=== PATIENT | female | born 1935 | race Caucasian/White ===

== ENCOUNTER 2016-11-06 20:04 | Inpatient (IN) | payer OTHER ==
--- NOTE | 2016-11-06 20:37 | EDPHY ---
H & P Stated Complaint: SOB COUGH DIFFICULTY BREATHING 5 DAY Source: Patient, Family - Personal History Current Tetanus/Diphtheria Vaccine: Yes Current Tetanus Diphtheria and Acellular Pertussis (TDAP): Yes - Medical/Surgical History Hx Asthma: No Hx Chronic Respiratory Disease: No Hx Diabetes: Yes Hx Cardiac Disease: Yes Hx Renal Disease: No Hx Cirrhosis: No Hx Alcoholism: No Hx HIV/AIDS: No Hx Splenectomy or Spleen Trauma: No Other PMH: D.M, STENTS 2005, HYPOTHYROID, DIVORTICULITIS, HTN - Social History Smoking Status: Never smoked Time Seen by Provider: 11/06/16 20:25 HPI/ROS: CHIEF COMPLAINT: Cough and fever shortness of breath HISTORY OF PRESENT ILLNESS: This is a 80-year-old female presenting to the emergency department complaining of cough and cold symptoms for a week. Over the past 1-2 days symptoms have worsened shortness of breath, productive cough, fever, with generalized weakness. Patient states she was placed on azithromycin and Tessalon [place] without resolve. Denies any chest pain chest pressure REVIEW OF SYSTEMS: Constitutional: fever, chills. Decrease in p.o. intake Eyes: No discharge. ENT: No sore throat. Cardiovascular: No chest pain, no palpitations. Respiratory: Productive cough, shortness of breath. Gastrointestinal: No abdominal pain, no vomiting. Genitourinary: No hematuria. Musculoskeletal: No back pain. Skin: No rashes. Neurological: No headache. (Tiffany Sanz) - Physical Exam Exam: General Appearance: Alert, no distress. Eyes: Pupils equal and round no pallor or injection. ENT, Mouth: Mucous membranes dry Respiratory: There are no retractions, lungs are coarse bilaterally Cardiovascular: Tachycardic. Gastrointestinal: Abdomen is soft and nontender, no masses, bowel sounds normal. Neurological: No focal deficits Skin: Warm and dry, no rashes. Musculoskeletal: Neck is supple nontender. Extremities: symmetrical, full range of motion. Psychiatric: Patient is oriented X 3, there is no agitation. (Tiffany Sanz) Constitutional: Initial Vital Signs Temperature (C) 36.8 C 11/06/16 20:06 Heart Rate 123 H 11/06/16 20:06 Respiratory Rate 24 H 11/06/16 20:06 Blood Pressure 159/106 H 11/06/16 20:06 O2 Sat (%) 93 11/06/16 20:06 O2 Delivery Mode Room Air Allergies/Adverse Reactions: erythromycin base [Erythromycin Base] Allergy (Verified 11/06/16 20:12) hydrochlorothiazide Allergy (Verified 11/06/16 20:12) Iodinated Contrast Media - Oral and Allergy (Verified 11/06/16 20:12) spironolactone Allergy (Verified 11/06/16 20:12) valacyclovir HCl [From Valtrex] Allergy (Verified 11/06/16 20:12) Home Medications: Medication Instructions Recorded Aspirin [Aspir 81] 81 mg PO DAILY 12/31/11 AZITHROMYCIN [Z-PACK] 250 mg PO DAILY 11/06/16 Allopurinol [Allopurinol 300 MG 300 mg PO HS 11/06/16 (RX)] Aspirin [Aspirin 81mg (*)] 81 mg PO BID 11/06/16 Atorvastatin Calcium [Lipitor 20 20 mg PO DAILY 11/06/16 mg (*)] Benzonatate [Tessalon Pearles (RX)] 100 mg PO TID PRN 11/06/16 Cetirizine [ZyrTEC 10 mg (*)] 10 mg PO BID 11/06/16 Cholecalciferol Vit D3 [Vitamin D3 2,000 units PO BID 11/06/16 (*)] Clopidogrel Bisulfate [Plavix (*)] 75 mg PO DAILY 11/06/16 Codeine Phosphate/Guaifenesin 5 ml PO Q4-6PRN PRN 11/06/16 [Guaifenesin-Codeine Syrup] Cyanocobalamin [Vitamin B12 (*)] 1,000 mcg PO DAILY 11/06/16 Famotidine [Pepcid 20 MG (*)] 20 mg PO BID 11/06/16 Insulin Glargine [Lantus 100 30 units SC HS 11/06/16 UNITS/ML (*)] Ipratropium 0.06% Nasal [Atrovent 2 sprays EACHNARE HS PRN 11/06/16 0.06% Nasal (RX)] LORazepam [Ativan (*)] 0.5 mg PO HS 11/06/16 Levothyroxine [Synthroid 125 mcg 125 mcg PO DAILY06 11/06/16 (*)] Metoprolol Succinate Xr [Toprol Xl 50 mg PO HS 05/06/17 50 mg (*)] [place]-3 Fatty Acids [Fish Oil 1000 2,000 mg PO BID 11/06/16 mg (*)] PARoxetine HCL [Paxil 10mg (*)] 10 mg PO HS 11/06/16 Zolpidem Tartrate [Ambien 5MG (*)] 5 mg PO HS 11/06/16 amLODIPine BESYLATE [Norvasc 5 mg 5 mg PO DAILY@18 11/06/16 (*)] metFORMIN HCL [Glucophage 1000 mg] 1,000 mg PO BIDMEAL 11/06/16 Medical Decision Making - Diagnostics Imaging Results: Imaging Impressions Chest X-Ray 11/06/16 20:36 Impression: 1. Bronchitis. 2. No focal pneumonia. 3. No pneumothorax. 4. Atherosclerotic aorta. ED Course/Re-evaluation: The patient was evaluated and managed by the BUSINESS OFFICE COORDINATOR. My cosignature indicates that I reviewed the chart and I agree with the findings and plan of care as documented. I am the secondary supervising physician. (Lora Rao) Discussed the plan of care with patient: IV fluids, CBC, CMP, chest x-ray, lactate admitted 2130: Discussed patient admit with family 2200: Spoke with Dr. Laird patient admitted (Tiffany Sanz) Differential Diagnosis: Differential diagnosis considered but not limited to pleural effusion, pneumothorax, and (Tiffany Sanz) - Data Points Laboratory Results: Laboratory Results 11/06/16 20:44 11/06/16 20:44 11/06/16 11/06/16 11/06/16 20:44 20:44 20:44 WBC 4.82 10^3/uL 10^3/uL (3.80-9.50) RBC 4.58 10^6/uL 10^6/uL (4.18-5.33) Hgb 14.5 g/dL g/dL (12.6-16.3) Hct 40.3 % % (38.0-47.0) MCV 88.0 fL fL (81.5-99.8) MCH 31.7 pg pg (27.9-34.1) MCHC 36.0 g/dL g/dL (32.4-36.7) RDW 12.9 % % (11.5-15.2) Plt Count 198 10^3/uL 10^3/uL (150-400) MPV 10.8 fL fL (8.7-11.7) Neut % (Auto) 57.1 % % (39.3-74.2) Lymph % (Auto) 30.3 % % (15.0-45.0) [place] % (Auto) 11.2 % % (4.5-13.0) Eos % (Auto) 0.0 % L % (0.6-7.6) Baso % (Auto) 1.0 % % (0.3-1.7) Nucleat RBC Rel Count 0.0 % % (0.0-0.2) Absolute Neuts (auto) 2.75 10^3/uL 10^3/uL (1.70-6.50) Absolute Lymphs (auto) 1.46 10^3/uL 10^3/uL (1.00-3.00) Absolute Monos (auto) 0.54 10^3/uL 10^3/uL (0.30-0.80) Absolute Eos (auto) 0.00 10^3/uL L 10^3/uL (0.03-0.40) Absolute Basos (auto) 0.05 10^3/uL 10^3/uL (0.02-0.10) Absolute Nucleated RBC 0.00 10^3/uL 10^3/uL (0-0.01) Immature Gran % 0.4 % % (0.0-1.1) Immature Gran # 0.02 10^3/uL 10^3/uL (0.00-0.10) PT 11.9 SEC L SEC (12.0-15.0) INR 0.89 (0.83-1.16) APTT 24.6 SEC SEC (23.0-38.0) VBG Lactic Acid Sodium 129 mEq/L L mEq/L (134-144) Potassium 4.2 mEq/L mEq/L (3.5-5.2) Chloride 97 mEq/L mEq/L (97-110) Carbon Dioxide 20 mEq/l L mEq/l (22-31) Anion Gap 12 mEq/L mEq/L (8-16) BUN 21 mg/dL mg/dL (7-23) Creatinine 1.3 mg/dL H mg/dL (0.6-1.0) Estimated GFR 40 Glucose 244 mg/dL H mg/dL (70-100) Calcium 9.6 mg/dL mg/dL (8.5-10.4) Total Bilirubin 0.8 mg/dL mg/dL (0.1-1.4) 11/06/16 20:44 WBC RBC Hgb Hct MCV MCH MCHC RDW Plt Count MPV Neut % (Auto) Lymph % (Auto) [place] % (Auto) Eos % (Auto) Baso % (Auto) Nucleat RBC Rel Count Absolute Neuts (auto) Absolute Lymphs (auto) Absolute Monos (auto) Absolute Eos (auto) Absolute Basos (auto) Absolute Nucleated RBC Immature Gran % Immature Gran # PT INR APTT VBG Lactic Acid 2.9 mmol/L H mmol/L (0.7-2.1) Sodium Potassium Chloride Carbon Dioxide Anion Gap BUN Creatinine Estimated GFR Glucose Calcium Total Bilirubin Departure - Departure Disposition: [facility] Inpatient Acute Condition: Good
[2016-11-06] MEDS ORDERED: NS 1,900 ML IV ONE (21:03)
[2016-11-06 21:08] LABS: % IMMATURE GRANULYOCYTES 0.4 % (0.0-1.1); ABSOLUTE IMMATURE GRANULOCYTES 0.02 10^3/uL (0.00-0.10); ADD DIFF? NO; ADD MORPH? NO; ADD SCAN? NO; ATYPICAL LYMPHOCYTE FLAG 0 (0-99); FRAGMENT RBC FLAG 0 (0-99); HEMATOCRIT 40.3 % (38.0-47.0); HEMOGLOBIN 14.5 g/dL (12.6-16.3); LEFT SHIFT FLG 0 (0-99); LIPEMIA HEMOLYSIS FLAG 90 (0-99); MEAN CELL HEMOGLOBIN 31.7 pg (27.9-34.1); MEAN PLATELET VOLUME 10.8 fL (8.7-11.7); PLATELET CLUMPS FLAG 10 (0-99); PLATELET COUNT 198 10^3/uL (150-400); RED BLOOD CELL COUNT 4.58 10^6/uL (4.18-5.33); RED CELL DISTRIBUTION WIDTH 12.9 % (11.5-15.2)
[2016-11-06 21:14] LABS: INR 0.89 (0.83-1.16); PROTIME(PATIENT) 11.9 SEC (12.0-15.0)
[2016-11-06 21:16] LABS: ANION GAP 12 mEq/L (8-16); BILIRUBIN,TOTAL 0.8 mg/dL (0.1-1.4); CALCIUM 9.6 mg/dL (8.5-10.4); CARBON DIOXIDE 20 mEq/l (22-31); CHLORIDE 97 mEq/L (97-110); CREATININE 1.3 mg/dL (0.6-1.0); GLOMERULAR FILTRATION RATE 40; GLUCOSE 244 mg/dL (70-100); POTASSIUM 4.2 mEq/L (3.5-5.2); SODIUM 129 mEq/L (134-144)
[2016-11-06 21:19] LABS: APTT 24.6 SEC (23.0-38.0)
[2016-11-06 21:58] LABS: LACGHOST ORDER
[2016-11-06] MEDS ORDERED: ONDANSETRON DISINTEGRATING 4 MG TAB PO PRN (23:01)
[2016-11-06] MEDS ORDERED: ONDANSETRON 4 MG/2 ML VIAL IVP PRN (23:01)
[2016-11-06] MEDS ORDERED: oxyCODONE IR 5 MG TAB PO PRN (23:01)
[2016-11-06] MEDS ORDERED: ACETAMINOPHEN 500 MG TAB PO PRN (23:01)
[2016-11-06] MEDS ORDERED: ALBUTEROL 3 ML DEYVIAL IH PRN (23:01)
[2016-11-06] MEDS ORDERED: levOFLOXACIN 750 MG/DEXTROSE/150 ML BAG IV ONE (23:03)
[2016-11-06] MEDS ORDERED: guaiFENesin/CODEINE PHOS 10 ML UDCUP PO PRN (23:04)
[2016-11-06] MEDS ORDERED: BENZONATATE 100 MG CAP PO PRN (23:04)
[2016-11-06] MEDS ORDERED: D50W 25 GM/50 ML SYR IVP PRN (23:06)
[2016-11-06] MEDS ORDERED: HYDROCODONE/APAP 5/325 TAB ONE (23:44)
[2016-11-06] MEDS ORDERED: HYDROCODONE/APAP 5/325 TAB PO PRN (23:47)
[2016-11-06] MEDS ORDERED: HYDROCODONE/APAP 5/325 TAB PO ONE (23:50)
[2016-11-07] MEDS ORDERED: IPRATROPIUM 0.06% NASAL SPRAY EACHNARE PRN (01:05)
--- NOTE | 2016-11-07 01:09 | PDGENHP ---
History and Physical - Chief Complaint cough, shortness of breath - History of Present Illness Patient is a 80-year-old female with a history of CAD S/P PCI, DM 2, hypothyroidism, allergic rhinitis who presents to the ED with complaint shortness of breath and cough. Patient states symptoms started about 5 days ago with mostly upper respiratory symptoms, nasal congestion and sneezing. The following day she had 1 episode of vomiting and diarrhea (nonbilious/nonbloody) . These symptoms improved, but her cough continued to worsen, became associated with subjective fever and chills. She went to her PMD's office two days ago and was told if symptoms don't improve within the next 24 hours, to start taking azithromycin. She initiated this on 11/05, but her symptoms continued, so she came to the ED for further evaluation. She denies any obvious sick contacts, did travel within the [place] about 3 weeks ago, but had been well until 5 days ago. On arrival to the ED, patient was afebrile, but tachycardic and tachypneic, saturating in the low90s on room air. Labs revealed normal CBC, elevated lactic acid (3) and mild hyponatremia. CXR did not show obvious infiltrate, however, given her clinical symptoms, patient was initiated on treatment for pneumonia. History Information - Allergies/Home Medication List Allergies/Adverse Reactions: erythromycin base [Erythromycin Base] Allergy (Verified 11/06/16 20:12) hydrochlorothiazide Allergy (Verified 11/06/16 20:12) Iodinated Contrast Media - Oral and Allergy (Verified 11/06/16 20:12) spironolactone Allergy (Verified 11/06/16 20:12) valacyclovir HCl [From Valtrex] Allergy (Verified 11/06/16 20:12) Home Medications: Aspirin [Aspir 81] 81 mg PO DAILY 12/31/11 [Last Taken 12/31/11] AZITHROMYCIN [Z-PACK] 250 mg PO DAILY 11/06/16 [Last Taken 11/06/16 500 MG] Allopurinol [Allopurinol 300 MG (RX)] 300 mg PO HS 11/06/16 [Last Taken 11/05/16 ] Aspirin [Aspirin 81mg (*)] 81 mg PO BID 11/06/16 [Last Taken 11/06/16] Atorvastatin Calcium [Lipitor 20 mg (*)] 20 mg PO DAILY 11/06/16 [Last Taken 12/18] Benzonatate [Tessalon Pearles (RX)] 100 mg PO TID PRN 11/06/16 [Last Taken 11/06] Cetirizine [ZyrTEC 10 mg (*)] 10 mg PO BID 11/06/16 [Last Taken 11/06/16] Cholecalciferol Vit D3 [Vitamin D3 (*)] 2,000 units PO BID 11/06/16 [Last Taken 11/06/16] Clopidogrel Bisulfate [Plavix (*)] 75 mg PO DAILY 11/06/16 [Last Taken 11/06/16] Codeine Phosphate/Guaifenesin [Guaifenesin-Codeine Syrup] 5 ml PO Q4-6PRN PRN [Last Taken 11/06/16] Cyanocobalamin [Vitamin B12 (*)] 1,000 mcg PO DAILY 11/06/16 [Last Taken ] Famotidine [Pepcid 20 MG (*)] 20 mg PO BID 11/06/16 [Last Taken 11/06/16] Insulin Glargine [Lantus 100 UNITS/ML (*)] 30 units SC HS 11/06/16 [Last Taken 11/05/16] Ipratropium 0.06% Nasal [Atrovent 0.06% Nasal (RX)] 2 sprays EACHNARE HS PRN 12/18 [Last Taken 11/05/16] LORazepam [Ativan (*)] 0.5 mg PO HS 11/06/16 [Last Taken 11/05/16] Levothyroxine [Synthroid 125 mcg (*)] 125 mcg PO DAILY06 11/06/16 [Last Taken ] Metoprolol Succinate Xr [Toprol Xl 50 mg (*)] 50 mg PO HS 11/06/16 [Last Taken 11/05/16] [place]-3 Fatty Acids [Fish Oil 1000 mg (*)] 2,000 mg PO BID 11/06/16 [Last Taken 11/06/16] PARoxetine HCL [Paxil 10mg (*)] 10 mg PO HS 11/06/16 [Last Taken 11/05/16] Zolpidem Tartrate [Ambien 5MG (*)] 5 mg PO HS 11/06/16 [Last Taken 11/05/16] amLODIPine BESYLATE [Norvasc 5 mg (*)] 5 mg PO DAILY@18 11/06/16 [Last Taken 12/18] metFORMIN HCL [Glucophage 1000 mg] 1,000 mg PO BIDMEAL 11/06/16 [Last Taken 12/18] I have personally reviewed and updated: family history, medical history, social history, surgical history - Past Medical History Additional medical history: CAD s/p PCI x 2. DM2, on insulin. Hypothyroidism. allergic rhinitis. Hypertension. h/o diverticulitis w colon resection - Surgical History Additional surgical history: bilateral cataract repair. cholecystectomy. hysterectomy, with bilateral salpingo-oophorectomy. partial colon resection - Social History Smoking Status: Never smoked Alcohol Use: None Drug Use: None Additional social history: Lives with her son, is independent in ADLs Review of Systems ROS: 10pt was reviewed & negative except for what was stated in HPI & below Physical Exam Temp Pulse Resp BP Pulse Ox 36.9 C 73 19 139/87 H 91 L 11/07/16 00:34 11/07/16 00:34 11/07/16 00:34 11/07/16 00:34 11/07/16 00:34 O2 (L/minute) 2 Constitutional: no apparent distress, appears nourished, not in pain Eyes: PERRL, anicteric sclera, EOMI Ears, Nose, Mouth, Throat: hearing normal, ears appear normal, no oral mucosal ulcers, dry mucous membranes Cardiovascular: regular rate and rhythym, no murmur, rub, or gallop, pulses symmetric bilaterally, No JVD, No edema Peripheral Pulses: 2+: dorsalis-pedis (R), dorsalis-pedis (L) Respiratory: no respiratory distress, no rales or rhonchi, clear to auscultation Gastrointestinal: normoactive bowel sounds, soft, non-tender abdomen, no palpable masses, No guarding, No rebound Genitourinary: no bladder fullness, no bladder tenderness Skin: warm, normal color, no rashes or abrasions, no fluctuance, no induration, No mottled Musculoskeletal: full muscle strength, no muscle tenderness, normal joint ROM, no joint effusions Neurologic: AAOx3, sensation intact bilaterally, CN II-XII Intact, No weakness, No numbness, No facial droop Psychiatric: interacting appropriately, not anxious, not encephalopathic, thought process linear Lab Data & Imaging Review 11/06/16 20:44 11/06/16 20:44 WBC 4.82 10^3/uL (3.80-9.50) 11/06/16 20:44 RBC 4.58 10^6/uL (4.18-5.33) 11/06/16 20:44 Hgb 14.5 g/dL (12.6-16.3) 11/06/16 20:44 Hct 40.3 % (38.0-47.0) 11/06/16 20:44 MCV 88.0 fL (81.5-99.8) 11/06/16 20:44 MCH 31.7 pg (27.9-34.1) 11/06/16 20:44 MCHC 36.0 g/dL (32.4-36.7) 11/06/16 20:44 RDW 12.9 % (11.5-15.2) 11/06/16 20:44 Plt Count 198 10^3/uL (150-400) 11/06/16 20:44 MPV 10.8 fL (8.7-11.7) 11/06/16 20:44 Neut % (Auto) 57.1 % (39.3-74.2) 11/06/16 20:44 Lymph % (Auto) 30.3 % (15.0-45.0) 11/06/16 20:44 [place] % (Auto) 11.2 % (4.5-13.0) 11/06/16 20:44 Eos % (Auto) 0.0 % (0.6-7.6) L 11/06/16 20:44 Baso % (Auto) 1.0 % (0.3-1.7) 11/06/16 20:44 Nucleat RBC Rel Count 0.0 % (0.0-0.2) 11/06/16 20:44 Absolute Neuts (auto) 2.75 10^3/uL (1.70-6.50) 11/06/16 20:44 Absolute Lymphs (auto) 1.46 10^3/uL (1.00-3.00) 11/06/16 20:44 Absolute Monos (auto) 0.54 10^3/uL (0.30-0.80) 11/06/16 20:44 Absolute Eos (auto) 0.00 10^3/uL (0.03-0.40) L 11/06/16 20:44 Absolute Basos (auto) 0.05 10^3/uL (0.02-0.10) 11/06/16 20:44 Absolute Nucleated RBC 0.00 10^3/uL (0-0.01) 11/06/16 20:44 Immature Gran % 0.4 % (0.0-1.1) 11/06/16 20:44 Immature Gran # 0.02 10^3/uL (0.00-0.10) 11/06/16 20:44 PT 11.9 SEC (12.0-15.0) L 11/06/16 20:44 INR 0.89 (0.83-1.16) 11/06/16 20:44 APTT 24.6 SEC (23.0-38.0) 11/06/16 20:44 VBG Lactic Acid 2.2 mmol/L (0.7-2.1) H 11/06/16 23:06 Sodium 129 mEq/L (134-144) L 11/06/16 20:44 Potassium 4.2 mEq/L (3.5-5.2) 11/06/16 20:44 Chloride 97 mEq/L (97-110) 11/06/16 20:44 Carbon Dioxide 20 mEq/l (22-31) L 11/06/16 20:44 Anion Gap 12 mEq/L (8-16) 11/06/16 20:44 BUN 21 mg/dL (7-23) 11/06/16 20:44 Creatinine 1.3 mg/dL (0.6-1.0) H 11/06/16 20:44 Estimated GFR 40 11/06/16 20:44 Glucose 244 mg/dL (70-100) H 11/06/16 20:44 POC Glucose 158 mg/dL (70-100) H 11/07/16 00:52 Calcium 9.6 mg/dL (8.5-10.4) 11/06/16 20:44 Total Bilirubin 0.8 mg/dL (0.1-1.4) 11/06/16 20:44 Influenza A & B (PCR) NEGATIVE FOR FLU (NEGATIVE) 11/06/16 23:15 Visualized and Interpreted Chest x-ray results: Yes Chest X-Ray results: other (possible early lower lobe infiltrate) Assessment & Plan Assessment: Patient is a 72-year-old female with a history of CAD, dm 2, hypothyroidism who presents to the ED with complaint of cough and shortness of breath. ED workup appears consistent with community-acquired pneumonia. Plan: # acute pneumonia On patient's arrival in the ED, she was tachycardic and tachypneic, and given her symptoms, presentation appears consistent with acute pneumonia. Lactic acid was also elevated on presentation consistent with sepsis. She has been cultured, initiated on appropriate IV fluid bolus and antibiotic therapy. - cont ceftriaxone/azithromycin - cont NS @ 75 cc/hr - f/u blood culture - check legionella, strept ag and sputum culture # elevated creatinine, hyponatremia Likely related to hypovolemia in setting of acute illness. She has received 2L IV fluid resuscitation, will continue to trend BMP. WIll also check UA to rule out urinary source of infection. # CAD Patient denies any cardiac symptoms, denies chest pain or palpitations. Will check baseline EKG and resume home med regimen. # DM2 Blood glucose stable, will monitor FS TIDAC, cover with sliding scale insulin and resume home lantus. # Hypothyroidism Check TSH, resume home synthroid. # dispo: admit to inpatient service for likely > 2 [place] stay # gen: cardiac/diabetic diet DVT ppx: lovenox Full code
[2016-11-07] MEDS: INSULIN GLARGINE 100 UNITS/ML SYRINGE SC SCH ×2 (01:29→21:11)
[2016-11-07] MEDS: LEVOTHYROXINE 125 MCG TAB PO SCH (06:24)
[2016-11-07 07:07] LABS: % IMMATURE GRANULYOCYTES 0.3 % (0.0-1.1); ABSOLUTE IMMATURE GRANULOCYTES 0.01 10^3/uL (0.00-0.10); ADD DIFF? NO; ADD MORPH? NO; ADD SCAN? NO; ATYPICAL LYMPHOCYTE FLAG 50 (0-99); FRAGMENT RBC FLAG 0 (0-99); HEMATOCRIT 34.8 % (38.0-47.0); HEMOGLOBIN 12.4 g/dL (12.6-16.3); LEFT SHIFT FLG 0 (0-99); LIPEMIA HEMOLYSIS FLAG 90 (0-99); MEAN CELL HEMOGLOBIN 31.4 pg (27.9-34.1); MEAN CELL HEMOGLOBIN CONCENTR. 35.6 g/dL (32.4-36.7); MEAN CELL VOLUME 88.1 fL (81.5-99.8); MEAN PLATELET VOLUME 10.7 fL (8.7-11.7); PLATELET CLUMPS FLAG 20 (0-99); PLATELET COUNT 173 10^3/uL (150-400); RED BLOOD CELL COUNT 3.95 10^6/uL (4.18-5.33); RED CELL DISTRIBUTION WIDTH 12.8 % (11.5-15.2)
[2016-11-07 07:17] LABS: APTT 24.9 SEC (23.0-38.0); PROTIME(PATIENT) 13.1 SEC (12.0-15.0)
[2016-11-07 07:33] LABS: ANION GAP 8 mEq/L (8-16); CALCIUM 8.7 mg/dL (8.5-10.4); CARBON DIOXIDE 20 mEq/l (22-31); CHLORIDE 104 mEq/L (97-110); CREATININE 1.1 mg/dL (0.6-1.0); GLOMERULAR FILTRATION RATE 48; GLUCOSE 178 mg/dL (70-100); MAGNESIUM 1.1 mg/dL (1.6-2.3); POTASSIUM 4.7 mEq/L (3.5-5.2); SODIUM 132 mEq/L (134-144)
[2016-11-07] MEDS: ASPIRIN 81 MG CHEWABLE TAB PO SCH ×2 (08:13→21:03)
[2016-11-07] MEDS: CLOPIDOGREL BISULFATE 75 MG TAB PO SCH (08:13)
[2016-11-07] MEDS: OMEGA-3 FATTY ACIDS 1,000 MG CAP PO SCH ×2 (08:13→21:03)
[2016-11-07] MEDS: CHOLECALCIFEROL VIT D3 1,000 UNITS TAB PO SCH ×2 (08:13→21:02)
[2016-11-07] MEDS: CYANO/VITAMIN B12 1000 MCG TAB PO SCH (08:13)
[2016-11-07] MEDS: CETIRIZINE 10 MG TAB PO SCH ×2 (08:13→21:03)
[2016-11-07] MEDS: FAMOTIDINE 20 MG TAB PO SCH ×2 (08:13→21:03)
[2016-11-07] MEDS: INSULIN LISPRO 100 UNIT/ML SC SCH ×3 (08:14→17:50)
[2016-11-07] MEDS: ATORVASTATIN CALCIUM 20 MG TAB PO SCH (08:15)
[2016-11-07] MEDS ORDERED: AZITHROMYCIN IV 500 MG in D5W 250 ML IV SCH (09:00)
--- NOTE | 2016-11-07 12:33 | HOSPPROG ---
Hospitalist Progress Note Assessment/Plan: Patient is a 72-year-old female with a history of CAD, dm 2, hypothyroidism who presents to the ED with complaint of cough and shortness of breath. ED workup appears consistent with community-acquired pneumonia vs bronchitis. Plan: # acute pneumonia vs bronchitis - no obvious infiltrate on CXR, suspect viral etiology though will complete atbx course - cont ceftriaxone/azithromycin - cont NS @ 75 cc/hr - f/u culture data - send respiratory viral culture - schedule nebs to see if this helps with bronchospasm # diarrhea - present on arrival, send GI pathogen panel # metabolic acidosis - secondary to lactic acidosis. lactate trended up this afternoon, but clinically she appears well. -cont IVF's, recheck this evening # allergic rhinitis - zyrtec/flonase # JUANI - Cr improving with IVF's, 1.3 --> 1.1 # CAD - stable, CP free. Cont home regimen. # DM2 - adequate control, cont home regimen # Hypothyroidism - cont synthroid # dispo: cont inpt # gen: cardiac/diabetic diet DVT ppx: lovenox Full code Subjective: Pt feels better today. Cough is improved. No CP or SOB at rest. No fevers. Reports diarrhea, loose, multiple times a day, no hematochezia or melena. Decreased appetite. Objective: Vital Signs Temp Pulse Resp BP Pulse Ox 36.8 C 64 18 153/77 H 93 11/07/16 08:47 11/07/16 08:47 11/07/16 08:47 11/07/16 08:47 11/07/16 08:47 Laboratory Results 11/07/16 06:45 11/07/16 06:45 11/06/16 11/07/16 11/08/16 05:59 05:59 05:59 Intake Total 2575 375 Output Total 150 Balance 2425 375 PT 13.1 SEC (12.0-15.0) 11/07/16 06:45 INR 1.00 (0.83-1.16) 11/07/16 06:45 - Physical Exam Constitutional: no apparent distress Eyes: PERRL Ears, Nose, Mouth, Throat: moist mucous membranes Cardiovascular: regular rate and rhythym Respiratory: no respiratory distress, clear to auscultation Gastrointestinal: normoactive bowel sounds, soft, non-tender abdomen Skin: warm Musculoskeletal: full muscle strength Neurologic: AAOx3 Psychiatric: interacting appropriately ICD10 Worksheet Patient Problems: Problems Problem Status Onset Benign essential hypertension Active CAD - Coronary arteriosclerosis Active Diabetes mellitus type 2 Active Essential tremor Active Hypercholesterolemia Active Syncope Active
[2016-11-07] MEDS: ALBUTEROL 3 ML DEYVIAL IH SCH ×2 (16:47→20:07)
[2016-11-07 16:53] VITALS: RESP 16
[2016-11-07] MEDS: ENOXAPARIN 40 MG/0.4 ML SYR SC SCH (17:28)
[2016-11-07] MEDS ORDERED: amLODIPine BESYLATE 5 MG TAB PO SCH (18:00)
[2016-11-07] MEDS: FLUTICASONE NASAL 120 SPRAYS/16 GM MDI EACHNARE SCH (18:26)
[2016-11-07] MEDS: NS 1,000 ML IV SCH (18:27)
[2016-11-07] MEDS ORDERED: PARoxetine HCL 10 MG TAB PO SCH (21:00)
[2016-11-07] MEDS ORDERED: METOPROLOL SUCCINATE XR 50 MG TAB PO SCH (21:00)
[2016-11-07] MEDS ORDERED: ALLOPURINOL 300 MG TAB PO SCH (21:00)
[2016-11-08 04:18] LABS: ANION GAP 11 mEq/L (8-16); CALCIUM 9.7 mg/dL (8.5-10.4); CARBON DIOXIDE 21 mEq/l (22-31); CHLORIDE 106 mEq/L (97-110); CREATININE 1.1 mg/dL (0.6-1.0); GLOMERULAR FILTRATION RATE 48; GLUCOSE 154 mg/dL (70-100); POTASSIUM 4.1 mEq/L (3.5-5.2); SODIUM 138 mEq/L (134-144)
[2016-11-08] MEDS: ALBUTEROL 3 ML DEYVIAL IH SCH ×2 (04:25→11:26)
[2016-11-08] MEDS: VANCOMYCIN 125 MG/2.5 ML UDL PO SCH ×2 (06:05→11:13)
[2016-11-08] MEDS: LEVOTHYROXINE 125 MCG TAB PO SCH (06:05)
[2016-11-08] MEDS: NS 1,000 ML IV SCH (06:05)
[2016-11-08 08:10] VITALS: BP 122/78; PULSE 80; TEMP 98.2; O2SAT 96
[2016-11-08] MEDS: ASPIRIN 81 MG CHEWABLE TAB PO SCH (09:05)
[2016-11-08] MEDS: ENOXAPARIN 40 MG/0.4 ML SYR SC SCH (09:05)
[2016-11-08] MEDS: FAMOTIDINE 20 MG TAB PO SCH (09:05)
[2016-11-08] MEDS: ATORVASTATIN CALCIUM 20 MG TAB PO SCH (09:05)
[2016-11-08] MEDS: OMEGA-3 FATTY ACIDS 1,000 MG CAP PO SCH (09:05)
[2016-11-08] MEDS: CLOPIDOGREL BISULFATE 75 MG TAB PO SCH (09:05)
[2016-11-08] MEDS: CYANO/VITAMIN B12 1000 MCG TAB PO SCH (09:05)
[2016-11-08] MEDS: CETIRIZINE 10 MG TAB PO SCH (09:05)
[2016-11-08] MEDS: CHOLECALCIFEROL VIT D3 1,000 UNITS TAB PO SCH (09:05)
[2016-11-08] MEDS: INSULIN LISPRO 100 UNIT/ML SC SCH ×2 (09:06→11:26)
[2016-11-08] MEDS: FLUTICASONE NASAL 120 SPRAYS/16 GM MDI EACHNARE SCH (09:06)
[2016-11-08] MEDS ORDERED: PNEUMOC 13-VAL CONJ-DIP CRM/PF 0.5 ML SYR IM ONE (10:48)
--- NOTE | 2016-11-08 12:01 | PDIAF ---
- Diagnosis Diagnosis: C diff, viral bronchitis Code Status: Full Code - Medication Management Discharge Medications: Medications to Continue on Transfer Allopurinol [Allopurinol 300 MG (RX)] 300 mg PO HS 11/06/16 [Last Taken 11/05/16 ] Aspirin [Aspirin 81mg (*)] 81 mg PO BID 11/06/16 [Last Taken 11/06/16] Atorvastatin Calcium [Lipitor 20 mg (*)] 20 mg PO DAILY 11/06/16 [Last Taken 12/18] Benzonatate [Tessalon Pearles] 100 mg PO TID PRN 11/06/16 [Last Taken 11/06/16] Cetirizine [ZyrTEC 10 mg (*)] 10 mg PO BID 11/06/16 [Last Taken 11/06/16] Cholecalciferol Vit D3 [Vitamin D3 (*)] 2,000 units PO BID 11/06/16 [Last Taken 11/06/16] Clopidogrel Bisulfate [Plavix (*)] 75 mg PO DAILY 11/06/16 [Last Taken 11/06/16] Codeine Phosphate/Guaifenesin [Guaifenesin-Codeine Syrup] 5 ml PO Q4-6PRN PRN [Last Taken 11/06/16] Cyanocobalamin [Vitamin B12 (*)] 1,000 mcg PO DAILY 11/06/16 [Last Taken ] Famotidine [Pepcid 20 MG (*)] 20 mg PO BID 11/06/16 [Last Taken 11/06/16] Insulin Glargine [Lantus 100 UNITS/ML (*)] 30 units SC HS 11/06/16 [Last Taken 11/05/16] Ipratropium 0.06% Nasal [Atrovent 0.06% Nasal] 2 sprays EACHNARE HS PRN [Last Taken 11/05/16] LORazepam [Ativan (*)] 0.5 mg PO HS 11/06/16 [Last Taken 11/05/16] Levothyroxine [Synthroid 125 mcg (*)] 125 mcg PO DAILY06 11/06/16 [Last Taken ] Metoprolol Succinate Xr [Toprol Xl 50 mg (*)] 50 mg PO HS 11/06/16 [Last Taken 11/05/16] [place]-3 Fatty Acids [Fish Oil 1000 mg (*)] 2,000 mg PO BID 11/06/16 [Last Taken 11/06/16] PARoxetine HCL [Paxil 10mg (*)] 10 mg PO HS 11/06/16 [Last Taken 11/05/16] Zolpidem Tartrate [Ambien 5MG (*)] 5 mg PO HS 11/06/16 [Last Taken 11/05/16] amLODIPine BESYLATE [Norvasc 5 mg (*)] 5 mg PO DAILY@18 11/06/16 [Last Taken 12/18] metFORMIN HCL [Glucophage 1000 mg] 1,000 mg PO BIDMEAL 11/06/16 [Last Taken 12/18] Albuterol [Proventil] 17 gm IH Q4H PRN #1 aerosol 11/08/16 [Last Taken Unknown] Vancomycin [Vancocin Oral Liquid] 125 mg PO QID #52 udl 11/08/16 [Last Taken Unknown] Discharge Medications: Refer to the Discharge Home Medication list for PRN reason. PICC Care - Routine: N/A - Orders Services needed: Home Care, Registered Nurse Home Care Face to Face: I certify that this patient was under my care and that I had the required [id number] encounter meeting the encounter requirements on the discharge day. My findings support the fact that the patient is homebound as defined in CMS Chapter 7 Medicare Benefits Manual 30.1.1, The condition of the patient is such that there exists a normal inability to leave home and consequently, leaving home would require a considerable and taxing effort. Diet Recommendation: no restrictions on diet - Follow Up Care Current Providers and Referrals: Yoel Mckenna PA [Primary Care Provider] - As per Instructions
--- NOTE | 2016-11-08 19:02 | GDS ---
[f rep st] DISCHARGE SUMMARY DISCHARGE DIAGNOSES: 1. Mild hypoxemia, secondary to acute viral bronchitis, resolved. 2. Viral bronchitis, secondary to Coronavirus per respiratory viral panel. 3. Clostridium difficile diarrhea. 4. Acute kidney injury, resolved, after intravenous fluids. 5. Diabetes mellitus. 6. Hypothyroidism. 7. Coronary artery disease, status post PCI, stable. CONSULTANTS: None. IMAGING: Chest x-ray, November 06, showed peribronchial thickening suggestive of bronchitis. No obviou s infiltrate, effusion or pneumothorax. HISTORY: For details please see the history and physical dated November 07, 2016. In brief, the patient is a 80-year-old female, with a history of coronary artery disease, diabetes, and hypothyroidism, pr esented to the emergency department with shortness of breath and cough. Upon arrival, she was found to be tachycardic and tachypneic, with oxygen saturations in the low 90s, dipping into the high 80s on room air. She was admitted to the hospital for further management. HOSPITAL COURSE: The patient was admitted to the progressive care unit. There was initially some s uspicion for pneumonia, and she had an elevated lactate, therefore blood cultures were drawn. She w as started on IV antibiotics. Her lactate normalized with IV fluid resuscitation. I suspect that w as due to volume depletion, in the setting of acute illness. A viral respiratory culture was sent, and revealed Coronavirus. There was no evidence of pneumonia on her chest x-ray. Furthermore, she had complained of several days of diarrhea, and a GI pathogen panel was positive for C. difficile. At this point, ceftriaxone and azithromycin were discontinued, and oral vancomycin was started for t reatment of her C. difficile. She received supportive care for viral bronchitis including nebulizer s, IV fluid and cough suppressants. Her condition significantly improved on the day of discharge. She is saturating 96% on room air. She had mild elevation of her creatinine on arrival, and this al so improved with IV fluids. Blood cultures remain negative at discharge, though final report is sti ll pending. DISPOSITION: Patient is discharged home in stable condition. FOLLOWUP: Patient is to follow up with Dr. Yoel Mckenna, her primary care provider. DISCHARGE MEDICATIONS: Please see [facility] for complete updated outpatient medication list. She wi ll continue all medications as previously prescribed. New medications on discharge include: 1. Vancomycin 125 mg p.o. four times daily, #52, no refills, to complete a 14-day course of treatme nt for C. difficile. 2. Albuterol inhaler 1-2 puffs q.4 hours p.r.n., #1, no refills. Discontinued medications include azithromycin. /[id number]/MODL
== END 2016-11-08 12:58 | disposition home health service (06) | DRG 202 ==
LOC: F2W 11-07 00:24
PROVIDERS: ADMIT Internal Medicine; ATTEND Internal Medicine
DX: J20.8 Acute bronchitis due to other specified organisms (principal); R09.02 Hypoxemia; A04.7 Enterocolitis due to Clostridium difficile; N17.9 Acute kidney failure, unspecified; E11.9 Type 2 diabetes mellitus without complications; E03.9 Hypothyroidism, unspecified; I25.10 Atherosclerotic heart disease of native coronary artery without angina pectoris; Z95.5 Presence of coronary angioplasty implant and graft; Z23 Encounter for immunization
CPT/HCPCS: 87449-90; 96374; 97161-GP; 97165-GO; G0009; G8978-GP-CI; G8979-GP-CI; G8980-GP-CI; G8987-GO-CI; G8988-GO-CI; G8989-GO-CI; J0456; J0696; J1650; J1815; J1956; J2405

== ENCOUNTER 2017-11-25 12:15 | Observation (INO) | payer OTHER ==
[2017-11-25] MEDS ORDERED: ACETAMINOPHEN 325 MG TAB PO PRN (13:15)
[2017-11-25] MEDS ORDERED: ONDANSETRON DISINTEGRATING 4 MG TAB PO PRN (13:15)
[2017-11-25] MEDS ORDERED: ONDANSETRON 4 MG/2 ML VIAL IVP PRN (13:15)
--- NOTE | 2017-11-25 14:14 | GHP ---
[f rep st] HISTORY AND PHYSICAL DATE OF ADMISSION: 11/25/2017 DIAGNOSIS: New onset atrial fibrillation, and diarrhea. HISTORY OF PRESENT ILLNESS: This is an 82-year-old female who presented to the office today complaining of diarrhea which started Tuesday with a low-grade fever. She was seen last month in the office and treated for diverticulitis with Flagyl and Cipro. She reports that she had multiple loose bowel movements on Tuesday, and has had 2 thus far this morning. She has had multiple bowel movements every day throughout this week, with a low-grade fever. In addition, today she is feeling dizzy, weak, with increased fatigue and abdominal cramping. She has a history of C difficile in the past and is concerned that this could be recurrence of C difficile. She reports that she has been trying to drink extra fluids and has been using some electrolyte powder to supplement, given that she has had multiple episodes of diarrhea over the past few days, but does feel like she is probably dehydrated. She has had a decreased appetite and has not been eating much over the past few days. She denies any chest pain, but does endorse palpitations, lightheadedness, and dizziness. She denies any productive cough or congestion, though she does have chronic allergies, which are flaring up right now. PAST MEDICAL HISTORY: Includes type 2 diabetes, hypothyroidism, anxiety, essential hypertension, macular degeneration. She is status post NH in 2005, with 2 stent placements. ALLERGIES: Include erythromycin, gadolinium contrast, hydrochlorothiazide, spironolactone, Valtrex and Bactrim. FAMILY MEDICAL HISTORY: Father at 41 from throat cancer. Maternal aunt had dementia. A maternal aunt had diabetes. Mother at 61 from an NH. SOCIAL HISTORY: She is a former smoker, quit greater than 10 years ago. REVIEW OF SYSTEMS: GENERAL: She denies headache. Complains of fevers, chills over the past few days. Also complains of chronic allergies. ENT: Denies sinus pressure, pain, sore throat, swollen glands. RESPIRATORY: Denies productive cough, wheezing, shortness of breath. CARDIOVASCULAR: Complaining of palpitations, dizziness, lightheadedness. Denies chest pain or pressure. GI : Complaining of diarrhea with multiple watery bowel movements since Tuesday. Denies nausea, vomiting. Does also complain of abdominal cramping. GENITOURINARY: Denies urinary burning or frequency. SKIN: Denies itching, rash. NEURO: Denies numbness, tingling, loss of strength or sensation. PSYCH : Denies acute problematic mood change. EXAMINATION: GENERAL: Alert and oriented, not in acute distress. HEAD: Normocephalic, atraumatic. Eyes, pupils equal, round, reactive to light. EOMI. SKIN: Warm and dry. HEART: Irregularly irregular heart rhythm, with a slightly tachycardic rate in the 120s. No murmurs, rubs, or gallops. LUNGS: Clear to auscultation bilaterally. ABDOMEN: Soft, nontender, nondistended. EXTREMITIES: No peripheral edema. NEURO: Gait normal. Motor strength normal. PSYCH: Mood and affect full range, cooperative with exam. Good judgment and insight. ASSESSMENT/PLAN: 1. Diarrhea. The patient was recently treated in the past month for diverticulitis with Flagyl and ciprofloxacin. Will rule out Clostridium difficile as a cause for the diarrhea, checking C-reactive and sedimentation rate, as well as white count. 2. Dehydration. Multiple episodes of watery diarrhea over the past few days, likely causing dehydration. Will rehydrate with IV fluids, checking electrolytes. 3. New onset atrial fibrillation, likely due to dehydration with diarrhea. We will continue to monitor as we rehydrate with IV fluids. She is currently on 81 mg of aspirin daily, as well as Plavix. Will evaluate the need for anticoagulation if she does not resume normal sinus rhythm with rehydration. 4. Status post myocardial infarction in 2005 with 2 stent placement, currently without chest pain or symptoms of acute coronary syndrome. Currently on aspirin and Plavix as noted above. Will be on tele monitoring. 5. Diabetes type 2, currently well controlled with insulin detemir, metformin, Lantus. We will continue home medications and monitor blood sugars before each meal and before bedtime. 6. Essential hypertension, currently well controlled with metoprolol, amlodipine. We will continue home medication regimen and monitor blood pressures, though she is somewhat on the hypotensive side today given dehydration. 7. History of anxiety, currently without manifestations of anxiety. We will continue to monitor. DVT Prophylaxis: ASA and plavix DISPOSITION: Will admit as outpatient as we monitor her arrhythmia and hydration status overnight, with workup pending for possible C difficile. /[id number]/MODL MTDD
[2017-11-25 14:45] LABS: PLATELET COUNT 171 10^3/uL (150-400)
[2017-11-25] MEDS ORDERED: IPRATROPIUM 0.06% NASAL SPRAY EACHNARE PRN (16:34)
[2017-11-25] MEDS: NS 1,000 ML IV SCH (16:37)
[2017-11-25] MEDS: metFORMIN HCL 500 MG TAB PO SCH (17:06)
[2017-11-25] MEDS ORDERED: NON-FORMULARY NEW DRUG (Metformin Hcl [Glucophage 1000 Mg] 1,000 MG) PO SCH (18:00)
[2017-11-25] MEDS ORDERED: amLODIPine BESYLATE 5 MG TAB PO SCH (18:00)
--- NOTE | 2017-11-25 18:33 | SOAPPROG ---
SOAP Progress Note Assessment/Plan: Assessment: Plan: 11/25/17 18:31 diarrhea with dehydration--fluids helping new onset a fib--likely due to above, check echo dm--stable diarrhea--stool study pending CAD--stable meds Subjective: Leyla is feeling better with fluids. No diarrhea since request for stool sample. Aches seem less prominent Objective: Vital Signs Temp Pulse Resp BP Pulse Ox 36.2 C 116 H 18 132/93 H 90 L 11/25/17 17:00 11/25/17 17:00 11/25/17 17:00 11/25/17 17:00 11/25/17 17:00 Laboratory Results 11/25/17 14:30 11/25/17 14:30 Gen: Bright Lungs: CTAB Heart: irreg irreg with rate around 100 Abd + bs, soft LE's rani edema ICD10 Worksheet Patient Problems: Problems Problem Status Onset Benign essential hypertension Active CAD - Coronary arteriosclerosis Active Diabetes mellitus type 2 Active Essential tremor Active Hypercholesterolemia Active Syncope Active
[2017-11-25] MEDS: ASPIRIN 81 MG CHEWABLE TAB PO SCH (20:59)
[2017-11-25] MEDS: CETIRIZINE 10 MG TAB PO SCH (20:59)
[2017-11-25] MEDS: OMEGA-3 FATTY ACIDS 1,000 MG CAP PO SCH (20:59)
[2017-11-25] MEDS ORDERED: PARoxetine HCL 10 MG TAB PO SCH (21:00)
[2017-11-25] MEDS ORDERED: NON-FORMULARY NEW DRUG (Insulin Glargine 30 UNITS) SC SCH (21:00)
[2017-11-25] MEDS: FAMOTIDINE 20 MG TAB PO SCH (21:00)
[2017-11-25] MEDS ORDERED: ALLOPURINOL 300 MG TAB PO SCH (21:00)
[2017-11-25] MEDS ORDERED: METOPROLOL SUCCINATE XR 50 MG TAB PO SCH (21:00)
[2017-11-25] MEDS ORDERED: ZOLPIDEM TARTRATE 5 MG TAB PO SCH (21:00)
[2017-11-25] MEDS ORDERED: INSULIN GLARGINE 100 UNITS/ML UNIT SC SCH (21:00)
[2017-11-26] MEDS ORDERED: LEVOTHYROXINE 112 MCG TAB PO SCH (06:00)
[2017-11-26] MEDS: NS 1,000 ML IV SCH (06:17)
[2017-11-26] MEDS: metFORMIN HCL 500 MG TAB PO SCH (09:00)
[2017-11-26] MEDS ORDERED: ATORVASTATIN CALCIUM 20 MG TAB PO SCH (09:00)
[2017-11-26] MEDS: ASPIRIN 81 MG CHEWABLE TAB PO SCH (09:00)
[2017-11-26] MEDS ORDERED: CLOPIDOGREL BISULFATE 75 MG TAB PO SCH (09:00)
[2017-11-26] MEDS: CETIRIZINE 10 MG TAB PO SCH (09:01)
[2017-11-26] MEDS: FAMOTIDINE 20 MG TAB PO SCH (09:01)
[2017-11-26] MEDS: OMEGA-3 FATTY ACIDS 1,000 MG CAP PO SCH (09:01)
--- NOTE | 2017-11-26 11:30 | SOAPPROG ---
SOAP Progress Note Assessment/Plan: Assessment: Plan: 11/25/17 18:31 diarrhea with dehydration--fluids helping new onset a fib--likely due to above, check echo dm--stable diarrhea--stool study pending CAD--stable meds 11/26/17 11:29 new onset a fib--rate control markedly improved, will d/c home and f/u as outpatient diarrhea--resolved, doubt c diff. dm stable htn stable will d/c home, re-eval a fib next week. If persistent will d/c plavix and start eliquis. Subjective: Leyla is feeling better. No SOB, CP, palpitations or dizziness. No BM since admission. No belly pain. Objective: Vital Signs Temp Pulse Resp BP Pulse Ox 36.7 C 91 16 140/83 H 92 11/26/17 07:40 11/26/17 07:40 11/26/17 07:40 11/26/17 07:40 11/26/17 07:40 Laboratory Results 11/25/17 14:30 11/25/17 14:30 11/25/17 11/26/17 11/27/17 05:59 05:59 05:59 Intake Total 1900 Output Total 400 Balance 1500 Gen: NAD HEENT" WNL Lungs: CTAB Heart: irreg irreg with hr 90's Abd + bs soft nt LE's no edema ICD10 Worksheet Patient Problems: Problems Problem Status Onset Benign essential hypertension Active CAD - Coronary arteriosclerosis Active Diabetes mellitus type 2 Active Essential tremor Active Hypercholesterolemia Active Syncope Active
--- NOTE | 2017-11-26 12:06 | GDS ---
[f rep st] DISCHARGE SUMMARY REASON FOR OBSERVATION ADMISSION: New-onset atrial fibrillation, dehydration, diarrhea, concern for possible Clostridium difficile colitis. DISCHARGE DIAGNOSES: 1. Diarrhea, resolved, etiology unclear. 2. New-onset atrial fibrillation, improved rate control, now in the 90s. 3. Dehydration, resolved after intravenous fluids and oral intake. 4. Diabetes, stable. 5. Hypertension, well managed. 6. Coronary artery disease. No evidence of current symptomatology. HOSPITAL COURSE: Patient was admitted through the office due to identification of dehydration, rapid atrial fibrillation with new onset and diarrhea with suspicion for C diff. C diff evaluation was or dered, although patient had no more diarrhea when she was hospitalized. Fluids were replaced with IV normal saline. Blood pressure remained stable. Overall sense of hydration and sense of well being on the patient's part improved dramatically. She does not have shortness of breath, chest pain or pa lpitations. She does not currently have a sense of atrial fibrillation, although prior to admission, she could feel her heart beating in her throat. She otherwise feels comfortable with going home. S he will continue her current medications, which also include aspirin and Plavix. She will be seen ea rly next week. If she continues to be in atrial fibrillation, we will discontinue Plavix and begin E liquis b.i.d. and will need to follow her creatinine fairly closely given age, weight, and Eliquis do sing. She will otherwise continue her regular medicines and will consider resuming/starting losartan , which sounds like she has been on at some point in the past. An echocardiogram was performed. Off icial report is still pending. /[id number]/MODL
[2017-11-26 12:19] VITALS: BP 133/104
--- NOTE | 2017-11-26 15:37 | ECHO ---
[email or web address] [address] [address] Main: [phone] Fax: Transthoracic Echocardiogram Name: MARY QUINTERO MR#: [id number] Study Date: 11/26/2017 Study Time: 08:03 AM Date of : 1935 Age: 82 year(s) Height: 162.6 cm (64 in.) Weight: 62.6 kg (138 lb.) BSA: 1.67 m2 Gender: Female Examination: Echo Indication: new onset a fib Image Quality: Adequate Contrast: Requested by: Yoel Mckenna BP: 140 mmHg/83 mmHg Heart Rate: Rhythm: Indication: new onset a fib Procedure Staff Veterinarian Epidemiologist: Ingrid Cornejo RDCS Reading Physician: Requesting Provider: Measurements: Chambers Valvular Assessment AV/MV Valvular Assessment TV/PV Normal Normal Normal Name Value Range Name Value Range Name Value Range Ao [place] (2D): 2.7 cm (1.4 cm-2.6 AV meanP mmHg ( - ) TR Vmax: 2.90 mm/s ( - ) cm) FREIDA (VTI): 1.4 cm ( - ) TR PGmax: 34 mmHg ( - ) IVSd (2D): 0.9 cm (0.6 cm-1.1 MV E Vmax: 0.99 m/s ( - ) syst. PAP: 39 mmHg ( - ) cm) MV meanP mmHg ( - ) PV Vmax: 0.62 m/s (0.6 m/s-0.9 LVDd (2D): 4.0 cm (3.9 cm-5.3 MV PHT: 0.049 s ( - ) m/s) cm) MVA (Vmax): 1.2 m/s ( - ) PV PGmax: 2 mmHg ( - ) LVDs (2D): 2.8 cm (2.1 cm-4 cm) MVA (PHT): 4.5 s ( - ) LVPWd (2D): 0.9 cm ( - ) LVOTd 1.7 cm 1.7 cm mm LVEF (BP): 53 % (>=55 %) RVDd(2D): 3.1 cm (1.9 cm-3.8 cmmm) Continued Measurements: Chambers Valvular Assessment AV/MV Valvular Assessment TV/PV Name Value Name Value Name Value LADs: 3.8 cm MV DecTime: 176 m/s CVP (est.): 5 mmHg LADs Lon.7 cm MV E' Septal: 0.08 m/s LA Area: 20.6 cm2 MV E/E' Septal: 12.80 LA Volume: 62 ml MV E/E' Lateral: 9.40 LA Volume Index: 37.1 ml/m2 MV VTI: 27.10 cm RA Area: 16.2 cm2 MR ERO: 0.260 cm2 MR PISA radius: 8 mm MR Reg. Volume: 47 ml Patient: MARY QUINTERO Study Date: 11/26/2017 Page 1 of 2 08:03 AM Additional Vessels Name Value Ao Ascendin.9 cm Inferior Vena Cava: 1.6 cm Findings: Left Ventricle: Normal size left ventricle. No LV hypertrophy. Low normal left ventricular systolic function. EF is 53 %. No regional wall motion abnormality. Unable to assess diastolic dysfunction. Right Ventricle: Normal size right ventricle. Normal RV function. Left Atrium: The left atrium is mildly dilated. Right Atrium: The right atrium is normal in size. Mitral Valve: The mitral valve is normal in appearance and function. Moderate to severe mitral regurgitation. No mitral stenosis is present. Aortic Valve: The aortic valve is tri-leaflet. Mild aortic valve regurgitation is present. No aortic valve stenosis is present. Tricuspid Valve: The tricuspid valve is normal in appearance and function. Moderate tricuspid regurgitation is present. The pulmonary artery pressure is mildly increased. Right ventricular systolic pressure measures 39mmHg. Pulmonic Valve: The pulmonic valve is normal in appearance and function. There is no pulmonic regurgitation seen. Aorta: The aorta is normal. Normal size aortic root measuring 2.7 cm. Normal size ascending aorta measuring 2.9 cm. IVC: The IVC is normal sized. Pericardium: No pericardial effusion. No pleural effusion. (No Signature Object) Patient: MARY QUINTERO Study Date: 11/26/2017 Page 2 of 2 08:03 AM [id number]
== END 2017-11-26 13:00 | disposition home or self-care (01) ==
LOC: INTOOBSV 13:03 → F2W 13:03
PROVIDERS: ADMIT Internal Medicine; ATTEND Internal Medicine
DX: I48.91 Unspecified atrial fibrillation (principal); E86.0 Dehydration; R19.7 Diarrhea, unspecified; I25.10 Atherosclerotic heart disease of native coronary artery without angina pectoris; I10 Essential (primary) hypertension; E11.9 Type 2 diabetes mellitus without complications; Z95.818 Presence of other cardiac implants and grafts
CPT/HCPCS: 93306; 97165; G0378; G8987; G8988; G8989; J1815

== ENCOUNTER → 2018-09-21 | Outpatient (CLI) | payer OTHER | LOC: FIMAGING 09:37 | PROVIDERS: ATTEND Physician Assistant | DX: Z13.820 Encounter for screening for osteoporosis (principal); M89.9 Disorder of bone, unspecified; M85.80 Other specified disorders of bone density and structure, unspecified site ==